=== PATIENT | male | born 1970 | race Caucasian/White ===

== ENCOUNTER → 2023-03-21 07:45 | Outpatient (REF) | payer BC, SELFPAY | LOC: HWRAD 07:45 | PROVIDERS: ATTENDING PHYSICIAN Family Medicine | DX: Z12.9 Encounter for screening for malignant neoplasm, site unspecified (principal); K21.9 Gastro-esophageal reflux disease without esophagitis | CPT/HCPCS: 76700 ==

== ENCOUNTER → 2023-07-19 09:32 | Outpatient (REF) | payer BC, SELFPAY ==
[2023-07-19 11:25] LABS: IgA 144 mg/dl (70-400); IgG 1051 mg/dl (700-1600)
[2023-07-19 11:34] LABS: IgM 26 mg/dl (40-230)
[2023-07-19 11:48] LABS: Hepatitis B Surface Antigen Negative (Negative)
[2023-07-19 12:06] LABS: Hepatitis B Core Ab, Total Negative (Negative); Hepatitis B Surface Antibody Negative
[2023-07-19 13:04] LABS: Hepatitis C Antibody Negative (Negative)
[2023-07-19 21:24] LABS: Hepatitis A Antibody, Total Negative (Negative)
[2023-07-20 19:02] LABS: Alpha-1-Antitrypsin 143 mg/dL (90-200); Ceruloplasmin 22 mg/dL (15-30)
[2023-07-21 02:45] LABS: F-Actin Antibody IgG 5 Units (0-19); Mitochondrial M2 Ab, IgG 4.9 Units (0.0-24.9)
[2023-07-21 03:13] LABS: ANA, IgG Reflex to HEp-2 None Detected (None Detected)
[2023-07-22 02:29] LABS: LKM-1 Ab (IgG) 0.9 U (0.0-24.9)
== END ==
LOC: REG 09:32
PROVIDERS: ATTENDING PHYSICIAN Internal Medicine Gastroenterology; FAMILY PHYSICIAN Family Medicine
DX: K76.0 Fatty (change of) liver, not elsewhere classified (principal)
CPT/HCPCS: 36415; 82103; 82390; 82784; 83516; 86015; 86038; 86376; 86381; 86704; 86706; 86708; 86803; 87340

== ENCOUNTER → 2023-12-13 06:20 | Day surgery (SDC) | payer BC, SELFPAY | LOC: GI 06:20 | PROVIDERS: ATTENDING PHYSICIAN Internal Medicine Gastroenterology | DX: Z12.11 Encounter for screening for malignant neoplasm of colon (principal); D12.3 Benign neoplasm of transverse colon; D12.5 Benign neoplasm of sigmoid colon; K63.5 Polyp of colon; K64.0 First degree hemorrhoids; K22.70 Barrett's esophagus without dysplasia; K22.89 Other specified disease of esophagus; K22.82 Esophagogastric junction polyp; K31.7 Polyp of stomach and duodenum; R12 Heartburn; Z83.710 Family history of adenomatous and serrated polyps | CPT/HCPCS: 45385; 45380; 43239; 88305 ==

== ENCOUNTER 2025-01-09 06:31 | Day surgery (SDC) | payer OTHER, SELFPAY | END 2025-01-09 10:55 | disposition home or self-care (01) | LOC: GI 06:31 | PROVIDERS: ATTENDING PHYSICIAN Internal Medicine Gastroenterology | DX: Z12.11 Encounter for screening for malignant neoplasm of colon (principal); K64.9 Unspecified hemorrhoids; K63.89 Other specified diseases of intestine; D12.3 Benign neoplasm of transverse colon; K62.1 Rectal polyp; Z86.0101 Personal history of adenomatous and serrated colon polyps | CPT/HCPCS: 45380; 88305 ==